=== PATIENT | female | born 1965 | race African-American/Black ===

== ENCOUNTER 2017-11-27 20:28 | Emergency (ER) | payer OTHER ==
[~2017-11-27] VITALS: Ht 172.7 cm; Wt 73.0 kg
[~2017-11-27 20:28] MED LIST: ARAV20 PO; HYDROXYCHLOROQUINE; SULFASALAZINE
[2017-11-27 20:29] VITALS: BP 161/99
== END 2017-11-27 20:45 | disposition left against medical advice (07) ==
LOC: ER 20:41
DX: Z53.21 Procedure and treatment not carried out due to patient leaving prior to being seen by health care provider (principal)

== ENCOUNTER 2018-05-21 00:54 | Emergency (ER) | payer OTHER ==
[~2018-05-21] VITALS: Ht 160 cm; Wt 95.5 kg
[2018-05-21 01:24] VITALS: BP 166/89
== END 2018-05-21 01:41 | disposition home or self-care (01) ==
LOC: ER 00:54
DX: J45.901 Unspecified asthma with (acute) exacerbation (principal); I10 Essential (primary) hypertension; Z98.890 Other specified postprocedural states; Z88.0 Allergy status to penicillin
CPT/HCPCS: 99283

== ENCOUNTER 2018-09-25 20:09 | Emergency (ER) | payer BC, OTHER ==
[~2018-09-25] VITALS: Ht 165.1 cm; Wt 77.0 kg
[~2018-09-25 20:09] MED LIST changes: -HYDROXYCHLOROQUINE; +HYDROXYCHLOROQUINE PO; -SULFASALAZINE; +SULFASALAZINE PO
[2018-09-25 20:18] VITALS: BP 167/88
== END 2018-09-25 20:35 | disposition left against medical advice (07) ==
LOC: ER 20:34
DX: Z53.21 Procedure and treatment not carried out due to patient leaving prior to being seen by health care provider (principal)

== ENCOUNTER 2018-11-25 10:23 | Inpatient (IN) | payer BC ==
[~2018-11-25] VITALS: Ht 162.6 cm; Wt 98.0 kg
[2018-11-25] MEDS ORDERED: IPRATROPIUM BROMIDE (0.02%) 0.5MG/2.5ML NEB HHN STA (10:32)
[2018-11-25] MEDS ORDERED: ALBUTEROL (0.083%) 2.5MG/3ML NEB HHN STA (10:32)
[2018-11-25] MEDS ORDERED: SODIUM CHLORIDE 0.9% 1,000 ML IV ONE (10:36)
[2018-11-25] MEDS ORDERED: METHYLPREDNISOLONE SOD SUCC 125 MG/2 ML VIAL IV STA (10:46)
[2018-11-25] MEDS ORDERED: MAGNESIUM 2 G PREMIX 50 ML IV STA (10:46)
[2018-11-25 11:11] LABS: BASOPHILS % 0.9 % (0.0-2.0); EOSINOPHILS % 11.2 % (0.0-5.0); HEMOGLOBIN. 14.6 g/dL (12.0-16.0); LYMPHOCYTES % 19.2 % (20.0-50.0); MEAN CORPUSCULAR HEMOGLOBIN 30.5 pg (28.0-32.0); MEAN CORPUSCULAR VOLUME 91.5 fL (81.0-99.0); MEAN PLATELET VOLUME 9.1 fl (7.4-10.4); MONOCYTES % 4.1 % (2.0-8.0); NEUTROPHILS % 64.6 % (40.0-76.0); PLATELET 248 x1000/uL (130-400); RED CELL DISTRIBUTION WIDTH 15.2 % (11.6-14.6)
[2018-11-25 11:13] LABS: CHLORIDE 104 mEq/L (98-107)
[2018-11-25 11:14] LABS: PROTHROMBIN TIME 10.3 sec (9.6-11.0)
[2018-11-25] MEDS ORDERED: LEVOFLOXACIN 500MG PREMIX 100 ML IV ONE (12:15)
[2018-11-25] MEDS ORDERED: GUAIFENESIN-DM 200MG-20MG/10ML UDC PO PRN (13:00)
[2018-11-25] MEDS ORDERED: ACETAMINOPHEN 325MG TABLET PO PRN ×2 (13:00)
[2018-11-25] MEDS ORDERED: CLONIDINE 0.1MG TABLET PO PRN (13:00)
[2018-11-25 13:20] LABS: CLARITY URINE CLEAR (CLEAR); COLOR URINE YELLOW (YELLOW); KETONES URINE NEGATIVE (NEGATIVE); LEUKOCYTE ESTERASE URINE NEGATIVE (NEGATIVE); NITRITE URINE NEGATIVE (NEGATIVE); OCCULT BLOOD URINE NEGATIVE (NEGATIVE); PROTEIN URINE NEGATIVE (NEGATIVE); SPECIFIC GRAVITY URINE 1.003 (1.005-1.030); UROBILINOGEN URINE 0.2 E.U./dL (0.2-1.0)
[2018-11-25 13:38] LABS: *AMPHETAMINES SCREEN URINE NEGATIVE (NEGATIVE); *BARBITURATES SCREEN URINE NEGATIVE (NEGATIVE); *BENZODIAZEPINES SCREEN URINE NEGATIVE (NEGATIVE); *COCAINE SCREEN URINE NEGATIVE (NEGATIVE)
[2018-11-25 13:39] LABS: CANNABINOID URINE SCREEN NEGATIVE (NEGATIVE); METHADONE URINE SCREEN NEGATIVE (NEGATIVE); OPIATES URINE SCREEN NEGATIVE (NEGATIVE); PHENCYCLIDINE URINE SCREEN NEGATIVE (NEGATIVE)
[2018-11-25 13:55] VITALS: BP 142/94
[2018-11-25] MEDS ORDERED: LOSA100T14 PO (14:05)
[2018-11-25] MEDS ORDERED: albuterol INH (14:05)
[2018-11-25] MEDS ORDERED: AMLO10TA80 PO (14:05)
[2018-11-25] MEDS ORDERED: HYDR25TA PO (14:05)
[2018-11-25] MEDS ORDERED: atrovent INH (14:05)
[2018-11-25] MEDS ORDERED: symbicort INH (14:05)
[2018-11-25 14:26] VITALS: BP 142/94
[2018-11-25] MEDS ORDERED: ONDANSETRON 4MG/5ML UDC PO SCH (15:00)
[2018-11-25] MEDS ORDERED: ENOXAPARIN 40MG/0.4ML SYR SUBCUT SCH (15:00)
[2018-11-25] MEDS: METHYLPREDNISOLONE SOD SUCC 40 MG/ML VIAL IV SCH ×2 (15:24→22:08)
[2018-11-25] MEDS: AZITHROMYCIN 500 MG TABLET PO SCH (16:11)
[2018-11-25 20:00] VITALS: BP 160/91
[2018-11-25] MEDS ORDERED: LORATADINE 10MG TABLET PO SCH (21:00)
[2018-11-25] MEDS ORDERED: MONTELUKAST SODIUM 10MG TABLET PO SCH (21:00)
[2018-11-25] MEDS: FAMOTIDINE 20MG/2ML VIAL IV SCH (21:34)
[2018-11-25] MEDS: ENOXAPARIN 30MG/0.3ML SYR SUBCUT SCH (21:36)
[2018-11-26] VITALS: BP 146/87
[2018-11-26] MEDS: IPRATROPIUM BROMIDE (0.02%) 0.5MG/2.5ML NEB HHN SCH ×2 (02:01→04:55)
[2018-11-26 04:00] VITALS: BP 120/78
[2018-11-26] MEDS: METHYLPREDNISOLONE SOD SUCC 40 MG/ML VIAL IV SCH (06:29)
[2018-11-26 06:59] LABS: BASOPHILS % 0.1 % (0.0-2.0); EOSINOPHILS % 0.3 % (0.0-5.0); HEMATOCRIT. 40.7 % (36.0-48.0); HEMOGLOBIN. 13.6 g/dL (12.0-16.0); MEAN CORPUSCULAR HEMOGLOBIN 30.6 pg (28.0-32.0); MEAN CORPUSCULAR VOLUME 91.3 fL (81.0-99.0); MONOCYTES % 6.6 % (2.0-8.0); PLATELET 305 x1000/uL (130-400); RED BLOOD CELL COUNT 4.46 mill/uL (4.2-5.4); RED CELL DISTRIBUTION WIDTH 15.1 % (11.6-14.6)
[2018-11-26 07:48] LABS: CHLORIDE 105 mEq/L (98-107)
[2018-11-26 08:00] VITALS: BP 153/93
[2018-11-26] MEDS: AZITHROMYCIN 500 MG TABLET PO SCH (08:23)
[2018-11-26] MEDS: ENOXAPARIN 30MG/0.3ML SYR SUBCUT SCH (08:23)
[2018-11-26] MEDS: FAMOTIDINE 20MG/2ML VIAL IV SCH (08:23)
[2018-11-26 12:00] VITALS: BP 126/75
[2018-11-26 12:58] VITALS: BP 126/75
[2018-11-26] MEDS ORDERED: METHYLPREDNISOLONE SOD SUCC 40 MG/ML VIAL IV SCH (17:00)
== END 2018-11-26 14:30 | disposition home or self-care (01) | DRG 196 ==
LOC: ER 10:23 → 6WST 12:15 → ENRESERV 12:52
PROVIDERS: ADMIT Internal Medicine; ATTEND Internal Medicine
DX: J82 Pulmonary eosinophilia, not elsewhere classified (principal); J96.00 Acute respiratory failure, unspecified whether with hypoxia or hypercapnia; J44.1 Chronic obstructive pulmonary disease with (acute) exacerbation; R65.10 Systemic inflammatory response syndrome (SIRS) of non-infectious origin without acute organ dysfunction; J44.0 Chronic obstructive pulmonary disease with (acute) lower respiratory infection; I11.0 Hypertensive heart disease with heart failure; I50.9 Heart failure, unspecified; E66.9 Obesity, unspecified; M06.9 Rheumatoid arthritis, unspecified; Z68.37 Body mass index [BMI] 37.0-37.9, adult; Z88.0 Allergy status to penicillin; Z79.899 Other long term (current) drug therapy; Z71.89 Other specified counseling
CPT/HCPCS: 36415; 71045; 80048; 80305; 83036; 83605; 83880; 84145; 84484; 87804; 93005; 94640; 94644; 96361; 96365; 96366; 96368; 96375; 99285; C1893; J1650; J1956; J2920; J2930; J3475; J3490; J7030; J7611

== ENCOUNTER 2018-12-13 06:35 | Emergency (ER) | payer BC ==
[~2018-12-13] VITALS: Ht 170.2 cm; Wt 89.0 kg
[~2018-12-13 06:35] MED LIST changes: +AMLO10TA80 PO; +HYDR25TA PO; +LOSA100T14 PO; +albuterol INH; +atrovent INH; +symbicort INH
[2018-12-13] MEDS ORDERED: METHYLPREDNISOLONE SOD SUCC 125 MG/2 ML VIAL IV STA (06:58)
[2018-12-13] MEDS ORDERED: IPRATROPIUM BROMIDE (0.02%) 0.5MG/2.5ML NEB HHN STA (06:58)
[2018-12-13] MEDS ORDERED: MAGNESIUM 2 G PREMIX 50 ML IV ONE (07:00)
[2018-12-13] MEDS: ALBUTEROL (0.083%) 2.5MG/3ML NEB HHN SCH ×3 (07:00→08:00)
[2018-12-13 07:33] LABS: BASOPHILS % 0.7 % (0.0-2.0); EOSINOPHILS % 11.4 % (0.0-5.0); HEMATOCRIT. 44.1 % (36.0-48.0); HEMOGLOBIN. 14.5 g/dL (12.0-16.0); LYMPHOCYTES % 18.8 % (20.0-50.0); MEAN CORPUSCULAR HEMOGLOBIN 30.1 pg (28.0-32.0); MEAN CORPUSCULAR VOLUME 91.4 fL (81.0-99.0); MEAN PLATELET VOLUME 8.8 fl (7.4-10.4); MONOCYTES % 7.9 % (2.0-8.0); NEUTROPHILS % 61.2 % (40.0-76.0); PLATELET 269 x1000/uL (130-400); RED BLOOD CELL COUNT 4.83 mill/uL (4.2-5.4)
[2018-12-13 07:37] LABS: CHLORIDE 103 mEq/L (98-107)
[2018-12-13 10:46] VITALS: BP 130/79
== END 2018-12-13 11:20 | disposition home or self-care (01) ==
LOC: ER 06:35
DX: J45.901 Unspecified asthma with (acute) exacerbation (principal); I10 Essential (primary) hypertension; Z88.0 Allergy status to penicillin; Z79.899 Other long term (current) drug therapy
CPT/HCPCS: 36415; 71045; 80053; 84484; 85025; 93005; 94640; 96365; 96375; 99285; J2930; J3475; J7611; Z7610

== ENCOUNTER 2019-02-28 23:24 | Emergency (ER) | payer SELFPAY ==
[~2019-02-28] VITALS: Ht 167.6 cm; Wt 82.0 kg
[~2019-02-28 23:24] MED LIST changes: -LOSA100T14 PO; +LOSA100T32 PO
[2019-02-28 23:32] VITALS: BP 169/98
== END 2019-02-28 23:43 | disposition left against medical advice (07) ==
LOC: ER 23:24
DX: Z53.21 Procedure and treatment not carried out due to patient leaving prior to being seen by health care provider (principal); J45.909 Unspecified asthma, uncomplicated; I10 Essential (primary) hypertension; M19.90 Unspecified osteoarthritis, unspecified site